=== PATIENT | male | born 1980 | race Caucasian/White ===

== ENCOUNTER 2019-04-22 07:11 | Outpatient (CLI) | payer BC ==
--- NOTE | 2019-04-22 08:13 | CT ---
EXAM: CT brain without and with contrast HISTORY: Headaches COMPARISON: None TECHNIQUE: Multiple contiguous axial images were obtained and a CT of the brain without and with cont rast. FINDINGS: The brain is normal in morphology and attenuation without focal lesions or confluent areas of infarction. There is no evidence of hydrocephalus, intracranial hemorrhage, or extra-axial fluid collection. No abnormal enhancement is seen. The calvarium and overlying soft tissues are unremarkable. The visualized paranasal sinuses and masto id air cells are well aerated. IMPRESSION: No evidence of acute intracranial abnormality
[2019-04-22] MEDS ORDERED: Iopamidol 370 76% 100 ML VIAL ONE (11:00)
== END 2019-04-22 07:12 | disposition home or self-care (01) ==
LOC: BURCT 07:11
PROVIDERS: ATTEND Family Medicine
DX: R51 Headache (principal)
CPT/HCPCS: 70470; Q9967

== ENCOUNTER 2020-07-18 01:30 | Emergency (ER) | payer BC, OTHER ==
[2020-07-18] MEDS ORDERED: Boostrix 0.5 ML (Tdap) VIAL ONE (01:41)
[2020-07-18] MEDS ORDERED: Lidocaine 1% w/Epinephrine 1:100K 20 ML VIAL ONE (01:41)
[2020-07-18] MEDS ORDERED: Bacitracin 1 PK ONE (02:19)
== END 2020-07-18 02:31 ==
LOC: BURERS 01:30
DX: S06.0X0A Concussion without loss of consciousness, initial encounter (principal); S01.81XA Laceration without foreign body of other part of head, initial encounter; F17.290 Nicotine dependence, other tobacco product, uncomplicated; Z23 Encounter for immunization
CPT/HCPCS: 12013; 70450; 72125; 90471; 90715